=== PATIENT | female | born 1980 | race Caucasian/White ===

== ENCOUNTER → 2017-06-16 | Outpatient (CLI) | payer BC ==
--- NOTE | 2017-06-19 07:23 | MM ---
Reason for exam: screening (asymptomatic). Baseline mammogram. History: Taking other hormone beginning at age 26. Physical Findings: Nurse did not find any significant physical abnormalities on exam. MG Screening Mammo w CAD Bilateral CC and MLO view(s) were taken. The breast tissue is heterogeneously dense. This may lower the sensitivity of mammography. Finding: There are indeterminate regional calcifications in the middle position of the left breast. There is a tiny chronic nodularity in the left breast. These results were verbally communicated with the patient and result sheet given to the patient on 06/16/17. ASSESSMENT: Incomplete: need additional imaging evaluation, BI-RAD 0 RECOMMENDATION: Special view mammogram of the left breast. [facility] will attempt to contact patient to return for supplemental views.
--- NOTE | 2017-06-19 07:24 | MM ---
Reason for exam: additional evaluation requested from abnormal screening. History: Taking other hormone beginning at age 26. Physical Findings: Breast exam preformed at baseline screening. MG Work Up Mamm w CAD LT LM, CC with magnification, and LM with magnification view(s) were taken of the left breast. The breast tissue is heterogeneously dense. This may lower the sensitivity of mammography. Finding: There are round, regional calcifications in the inner quadrant, middle position of the left breast, partially layer. These results were verbally communicated with the patient and result sheet given to the patient on 06/16/17. ASSESSMENT: Probably benign, BI-RAD 3 RECOMMENDATION: Follow-up diagnostic mammogram of the left breast in 6 months.
== END | disposition home or self-care (01) ==
LOC: RADMAMWWP 09:30
PROVIDERS: ATTEND Obstetrics & Gynecology
DX: Z12.31 Encounter for screening mammogram for malignant neoplasm of breast (principal); R92.8 Other abnormal and inconclusive findings on diagnostic imaging of breast
CPT/HCPCS: G0202; G0206

== ENCOUNTER → 2017-08-03 | Outpatient (CLI) | payer BC ==
--- NOTE | 2017-08-03 15:09 | XR ---
EXAMINATION TYPE: XR foot complete LT DATE OF EXAM: 08/03/2017 COMPARISON: NONE HISTORY: Lateral foot pain TECHNIQUE: Three views are submitted. FINDINGS: The osseous structures are intact and mild hypertrophic change and arthropathy first MTP joint.. The re is no acute fracture or dislocation. Small plantar calcaneal spur. IMPRESSION: 1. No acute fracture or dislocation. If symptoms persist, follow-up exam in 7 to 10 days could be ob tained.
== END | disposition home or self-care (01) ==
LOC: RADXRMAIN 14:40
PROVIDERS: ATTEND Internal Medicine Geriatric Medicine
DX: M79.672 Pain in left foot (principal)

== ENCOUNTER 2017-09-17 08:03 | Emergency (ER) | payer BC ==
[2017-09-17] MEDS ORDERED: ONDANSETRON 4 MG/2 ML VIAL IVP STA ×2 (08:22→09:06)
[2017-09-17] MEDS ORDERED: HYDROmorphone 1 MG/ML 1 ML SYRINGE IVP STA (08:22)
[2017-09-17] MEDS ORDERED: SODIUM CHLORIDE 0.9% 1,000 ML IV STA (08:22)
--- NOTE | 2017-09-17 08:23 | ED ---
General Adult HPI - General Chief complaint: Abdominal Pain Stated complaint: poss kidney stone Time Seen by Provider: 09/17/17 08:16 Source: patient, RN notes reviewed Mode of arrival: ambulatory Limitations: no limitations - History of Present Illness Initial comments: 36-year-old female with significant past medical history for kidney stones, who presents emergency room today with a chief complaint of right-sided flank pain that began proxy 4 hours ago. She does admit to nausea and vomiting. Admits pain radiating around to the right lower back to the front. Patient does admit that it feels similar to kidney stone that she's had in the past. She denies any other complaints or associated symptoms. Patient denies any recent fever, chills, shortness of breath, chest pain, back pain, abdominal pain, nausea or vomiting, numbness or tingling, dysuria or hematuria, constipation or diarrhea, headaches or visual changes, or any other complaints. - Related Data Home Medications Medication Instructions Recorded Confirmed Atomoxetine HCl [Strattera] 40 mg PO DAILY 09/17/17 09/17/17 DULoxetine HCL [Cymbalta] 30 mg PO DAILY 09/17/17 09/17/17 Topiramate [Topamax] 50 mg PO BID 09/17/17 09/17/17 Previous Rx's Medication Instructions Recorded Hydrocodone/Acetaminophen [Trezevant 1 each PO Q6HR PRN #20 tab 09/17/17 5-325] Ibuprofen [Motrin] 600 mg PO Q6HR PRN #40 day 09/17/17 Ondansetron Odt [Zofran ODT] 4 mg PO Q8HR PRN #20 tab 09/17/17 Tamsulosin [Flomax] 0.4 mg PO DAILY #10 cap 09/17/17 Allergies Allergy/AdvReac Type Severity Reaction Status Date / Time amoxicillin Allergy Swelling Verified 09/17/17 08:42 Review of Systems ROS Statement: Those systems with pertinent positive or pertinent negative responses have been documented in the HPI. ROS Other: All systems not noted in ROS Statement are negative. 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 Eye: Pupils are equal, round and reactive to light, extra-ocular movements are intact. No nystagmus. There is normal conjunctiva bilaterally. No signs of icterus. Ears, nose, mouth and throat: There are moist mucous membranes and no oral lesions. Neck: The neck is supple, there is no tenderness or JVD. Cardiovascular: There is a regular rate and rhythm. No murmur, rub or gallop is appreciated. Respiratory: Lungs are clear to auscultation, respirations are non-labored, breath sounds are equal. No wheezes, stridor, rales, or rhonchi. Gastrointestinal: Soft, non-distended, non-tender abdomen without masses or organomegaly noted. There is no rebound or guarding present. No CVA tenderness. Bowel sounds are unremarkable. Musculoskeletal: Normal ROM, no tenderness. Strength 5/5. Sensation intact. Pulses equal bilaterally 2+. Neurological: A&O x 3. CN II-XII intact, There are no obvious motor or sensory deficits. Coordination appears grossly intact. Speech is normal. Skin: Skin is warm and dry and no rashes or lesions are noted. Psychiatric: Cooperative, appropriate mood & affect, normal judgment. Limitations: no limitations Course Vital Signs 09/17/17 08:04 Temperature 96.8 F L Pulse Rate 69 Respiratory 18 Rate Blood Pressure 142/90 O2 Sat by Pulse 97 Oximetry Medical Decision Making - Medical Decision Making Patient reexamined at this time shows no signs of distress. She is resting comfortably at the stretcher. Patient's labs have been reviewed and show some mild hematuria. No sign of infection. Patient's lab work unremarkable. Patient does admit that the symptoms are consistent with kidney stones that she' s had in the past. Options of CT were discussed. Risk and benefits were discussed. At this time she is comfortable without CAT scan. She'll be treated for kidney stone placed on Flomax, nausea medication pain medication go home with. Advised return to emergency room if any symptoms increase worsen or for any other concerns. - Lab Data Result diagrams: 09/17/17 08:22 09/17/17 08:22 Lab Results 09/17/17 09/17/1709/17/17 Range/Units 08:22 08:22 08:22 WBC 6.1 (3.8-10.6) k/uL RBC 4.59 (3.80-5.40) m/uL Hgb 14.3 (11.4-16.0) gm/dL Hct 44.7 (34.0-46.0) % MCV 97.2 (80.0-100.0) fL MCH 31.1 (25.0-35.0) pg MCHC 32.0 (31.0-37.0) g/dL RDW 12.9 (11.5-15.5) % Plt Count 247 (150-450) k/uL Neutrophils % 58 % Lymphocytes % 28 % Monocytes % 5 % Eosinophils % 6 % Basophils % 1 % Neutrophils # 3.5 (1.3-7.7) k/uL Lymphocytes # 1.7 (1.0-4.8) k/uL Monocytes # 0.3 (0-1.0) k/uL Eosinophils # 0.4 (0-0.7) k/uL Basophils # 0.1 (0-0.2) k/uL Sodium 143 (137-145) mmol/L Potassium 3.9 (3.5-5.1) mmol/L Chloride 110 H (98-107) mmol/L Carbon Dioxide 23 (22-30) mmol/L Anion Gap 10 mmol/L BUN 15 (7-17) mg/dL Creatinine 0.89 (0.52-1.04) mg/dL Est GFR (MDRD) Af Amer >60 (>60 ml/min/1.73 sqM) Est GFR (MDRD) Non-Af >60 (>60 ml/min/1.73 sqM) Glucose 119 H (74-99) mg/dL Calcium 9.4 (8.4-10.2) mg/dL Total Bilirubin 0.5 (0.2-1.3) mg/dL AST 21 (14-36) U/L ALT 25 (9-52) U/L Alkaline Phosphatase 49 (38-126) U/L Total Protein 7.4 (6.3-8.2) g/dL Albumin 4.5 (3.5-5.0) g/dL Amylase 35 (30-110) U/L Lipase 54 (23-300) U/L Urine Color Urine Appearance (Clear) Urine pH (5.0-8.0) Ur Specific [place] (1.001-1.035) Urine Protein (Negative) Urine Glucose (UA) (Negative) Urine Ketones (Negative) Urine Blood (Negative) Urine Nitrite (Negative) Urine Bilirubin (Negative) Urine Urobilinogen (<2.0) mg/dL Ur Leukocyte Esterase (Negative) Urine RBC (0-5) /hpf Urine WBC (0-5) /hpf Ur Squamous Epith Cells (0-4) /hpf Urine Bacteria (None) /hpf Urine Mucus (None) /hpf Urine HCG, Qual Not Detected (Not Detectd) 09/17/17 Range/Units 08:22 WBC (3.8-10.6) k/uL RBC (3.80-5.40) m/uL Hgb (11.4-16.0) gm/dL Hct (34.0-46.0) % MCV (80.0-100.0) fL MCH (25.0-35.0) pg MCHC (31.0-37.0) g/dL RDW (11.5-15.5) % Plt Count (150-450) k/uL Neutrophils % % Lymphocytes % % Monocytes % % Eosinophils % % Basophils % % Neutrophils # (1.3-7.7) k/uL Lymphocytes # (1.0-4.8) k/uL Monocytes # (0-1.0) k/uL Eosinophils # (0-0.7) k/uL Basophils # (0-0.2) k/uL Sodium (137-145) mmol/L Potassium (3.5-5.1) mmol/L Chloride (98-107) mmol/L Carbon Dioxide (22-30) mmol/L Anion Gap mmol/L BUN (7-17) mg/dL Creatinine (0.52-1.04) mg/dL Est GFR (MDRD) Af Amer (>60 ml/min/1.73 sqM) Est GFR (MDRD) Non-Af (>60 ml/min/1.73 sqM) Glucose (74-99) mg/dL Calcium (8.4-10.2) mg/dL Total Bilirubin (0.2-1.3) mg/dL AST (14-36) U/L ALT (9-52) U/L Alkaline Phosphatase (38-126) U/L Total Protein (6.3-8.2) g/dL Albumin (3.5-5.0) g/dL Amylase (30-110) U/L Lipase (23-300) U/L Urine Color Yellow Urine Appearance Cloudy H (Clear) Urine pH 5.0 (5.0-8.0) Ur Specific [place] 1.023 (1.001-1.035) Urine Protein Trace H (Negative) Urine Glucose (UA) Negative (Negative) Urine Ketones Negative (Negative) Urine Blood Moderate H (Negative) Urine Nitrite Negative (Negative) Urine Bilirubin Negative (Negative) Urine Urobilinogen <2.0 (<2.0) mg/dL Ur Leukocyte Esterase Moderate H (Negative) Urine RBC 10 H (0-5) /hpf Urine WBC 3 (0-5) /hpf Ur Squamous Epith Cells 25 H (0-4) /hpf Urine Bacteria Rare H (None) /hpf Urine Mucus Rare H (None) /hpf Urine HCG, Qual (Not Detectd) Disposition Clinical Impression: Kidney stone Disposition: HOME SELF-CARE Condition: Good Instructions: Kidney Stones (ED) Additional Instructions: Please use medication as discussed. Please follow-up with family doctor in the next 2 days of symptoms have not improved. Please return to emergency room if the symptoms increase or worsen or for any other concerns. Prescriptions: Hydrocodone/Acetaminophen [Trezevant 5-325] 1 each PO Q6HR PRN #20 tab PRN Reason: Pain Ibuprofen [Motrin] 600 mg PO Q6HR PRN #40 day PRN Reason: Pain Ondansetron Odt [Zofran ODT] 4 mg PO Q8HR PRN #20 tab PRN Reason: Nausea Tamsulosin [Flomax] 0.4 mg PO DAILY #10 cap Referrals: Dewey Miller MD [Primary Care Provider] - 1-2 days Time of Disposition: 09:54
[2017-09-17 08:31] LABS: Basophils # (A) 0.1 k/uL (0-0.2); Basophils % (A) 1 %; CH 31.5; CHCM 32.6; Eosinophils # (A) 0.4 k/uL (0-0.7); Eosinophils % (A) 6 %; HCT 44.7 % (34.0-46.0); HDW 2.21; HGB 14.3 gm/dL (11.4-16.0); Luc # (Auto) 0.12; Luc % (Auto) 2; Lymphocytes # (A) 1.7 k/uL (1.0-4.8); Lymphocytes % (A) 28 %; MCH 31.1 pg (25.0-35.0); MCV 97.2 fL (80.0-100.0); Monocytes # (A) 0.3 k/uL (0-1.0); Monocytes % (A) 5 %; Neutrophils # (A) 3.5 k/uL (1.3-7.7); Neutrophils % (A) 58 %; RBC 4.59 m/uL (3.80-5.40); RDW 12.9 % (11.5-15.5); WBC 6.1 k/uL (3.8-10.6); WBC (Perox) 6.15
[2017-09-17 08:36] LABS: Appearance,Urine Cloudy (Clear); Bacteria,Urine Rare /hpf; Bilirubin,Urine Negative (Negative); Glucose,Urine (UA) Negative (Negative); Ketones,Urine Negative (Negative); Leukocyte Esterase,Urine Moderate (Negative); Mucus,Urine Rare /hpf; Nitrite,Urine Negative (Negative); Particle Count 15480; Protein,Urine Trace (Negative); RBC,Urine 10 /hpf (0-5); Specific Gravity,Urine 1.023 (1.001-1.035); Squamous Epithelial Cell,Urine 25 /hpf (0-4); UA Billing (MACRO vs. MICRO) MICRO; Urobilinogen,Urine <2.0 mg/dL (<2.0); WBC,Urine 3 /hpf (0-5)
[2017-09-17 08:43] LABS: ALT 25 U/L (9-52); AST 21 U/L (14-36); Alkaline Phosphatase 49 U/L (38-126); Amylase 35 U/L (30-110); Anion Gap 10 mmol/L; Blood Urea Nitrogen 15 mg/dL (7-17); Calcium 9.4 mg/dL (8.4-10.2); Carbon Dioxide 23 mmol/L (22-30); Chloride 110 mmol/L (98-107); Glucose 119 mg/dL (74-99); Non-African American GFR(MDRD) >60 (>60 ml/min/1.73 sqM); Potassium 3.9 mmol/L (3.5-5.1); Sodium 143 mmol/L (137-145); Total Bilirubin 0.5 mg/dL (0.2-1.3); Total Protein 7.4 g/dL (6.3-8.2)
--- NOTE | 2017-09-17 08:51 | XR ---
EXAMINATION TYPE: XR KUB , 2 VIEWS DATE OF EXAM ORDERED: 09/17/2017 HISTORY: abdominal pain. COMPARISON: None. FINDINGS: The abdominal gas pattern is normal. There is no evidence of obstruction or free air. No u nusual calcifications are seen. There is an IUCD projecting over the pelvis. IMPRESSION: NO ACUTE INTRA-ABDOMINAL ABNORMALITY.
[2017-09-17] MEDS ORDERED: KETOROLAC 30 MG/ML 1 ML VIAL IVP STA (09:06)
[2017-09-17 10:22] VITALS: BP 112/72; PULSE 70; RESP 17; TEMP 97.1
== END 2017-09-17 10:22 | disposition home or self-care (01) ==
LOC: EC 08:03
DX: N20.0 Calculus of kidney (principal); F32.9 Major depressive disorder, single episode, unspecified; Z88.0 Allergy status to penicillin; Z79.899 Other long term (current) drug therapy
CPT/HCPCS: 99284; 96374; 96375 ×2; 96376; 96361; 36415; 80053; 82150; 83690; 85025; 81001; 81025; 74000; J2405; J1885; J1170

== ENCOUNTER → 2017-11-20 | Outpatient (CLI) | payer BC ==
--- NOTE | 2017-11-20 12:23 | XR ---
EXAMINATION TYPE: XR sacrum coccyx DATE OF EXAM: 11/20/2017 CLINICAL HISTORY: pain TECHNIQUE: Three views of the sacrum and coccyx are submitted. COMPARISON: None Sacral alae appear symmetric. Sacroiliac joints are within normal limits. Slight bony offset suggest ed at the sacrococcygeal junction which may be spurious in nature however subtle fracture is difficul t to exclude. Consider bone scan or CT for further evaluation. IMPRESSION: 1. Sacrococcygeal fracture difficult to exclude. See above.
== END | disposition home or self-care (01) ==
LOC: RADXRMAIN 11:43
PROVIDERS: ATTEND Internal Medicine Geriatric Medicine
DX: M54.5 Low back pain (principal)
CPT/HCPCS: 72220

== ENCOUNTER → 2017-12-18 | Outpatient (CLI) | payer BC ==
--- NOTE | 2017-12-18 12:09 | MM ---
Reason for exam: follow-up at short interval from prior study. Last mammogram was performed 6 months ago. History: Taking other hormone beginning at age 26. Physical Findings: Nurse did not find any significant physical abnormalities on exam. MG 3D Diag Mammo W/Cad LT CC and MLO view(s) were taken of the left breast. Prior study comparison: June 16, 2017, left breast MG work up mamm w CAD LT. June 16, 2017, bilateral MG screening mammo w CAD. The breast tissue is heterogeneously dense. This may lower the sensitivity of mammography. 9 o'clock grouped and regional calcifications are redemonstrated. Most of these layer compatible with benign milk of calcium. Others are round appearing. No significant interval change is seen. 1 year follow up recommended. These results were verbally communicated with the patient and result sheet given to the patient on 12/18/17. ASSESSMENT: Probably benign, BI-RAD 3 RECOMMENDATION: Follow-up diagnostic mammogram of the left breast in 1 year.
== END | disposition home or self-care (01) ==
LOC: RADMAMWWP 10:47
PROVIDERS: ATTEND Obstetrics & Gynecology
DX: R92.8 Other abnormal and inconclusive findings on diagnostic imaging of breast (principal)
CPT/HCPCS: 77065; G0279

== ENCOUNTER → 2019-01-15 | Outpatient (CLI) | payer BC ==
--- NOTE | 2019-01-15 10:07 | MM ---
Reason for exam: additional evaluation requested from prior study. Last mammogram was performed 1 year and 1 month ago. History: Taking other hormone beginning at age 26. Physical Findings: Nurse did not find any significant physical abnormalities on exam. MG Diagnostic Mammo w CAD MARCOS Bilateral CC and MLO view(s) were taken. Prior study comparison: December 18, 2017, left breast MG 3d diag mammo w/cad LT. June 16, 2017, left breast MG work up mamm w CAD LT. The breast tissue is heterogeneously dense. This may lower the sensitivity of mammography. Stable benign calcifications in the left breast. No significant new findings when compared with previous films. These results were verbally communicated with the patient and result sheet given to the patient on 01/15/19. ASSESSMENT: Benign, BI-RAD 2 RECOMMENDATION: Routine screening mammogram of both breasts in 1 year.
== END ==
LOC: RADMAMWWP 08:24
PROVIDERS: ATTEND Obstetrics & Gynecology
DX: R92.8 Other abnormal and inconclusive findings on diagnostic imaging of breast (principal)
CPT/HCPCS: 77066

== ENCOUNTER → 2020-06-05 | Outpatient (CLI) | payer BC ==
--- NOTE | 2020-06-08 10:39 | MM ---
Reason for exam: screening (asymptomatic). Last mammogram was performed 1 year and 5 months ago. History: Taking hormonal contraceptives for 12 years. Taking other hormone beginning at age 26. Physical Findings: A clinical breast exam by your physician is recommended on an annual basis and results should be correlated with mammographic findings. MG 3D Screening Mammo W/Cad Bilateral CC and MLO view(s) were taken. Prior study comparison: January 15, 2019, bilateral MG diagnostic mammo w CAD [facility]. December 18, 2017, left breast MG 3d diag mammo w/cad LT. The breast tissue is heterogeneously dense. This may lower the sensitivity of mammography. There is no discrete abnormality. No significant changes when compared with prior studies. ASSESSMENT: Negative, BI-RAD 1 RECOMMENDATION: Routine screening mammogram of both breasts in 1 year.
== END | disposition home or self-care (01) ==
LOC: RADMAMWWP 11:00
PROVIDERS: ATTEND Obstetrics & Gynecology
DX: Z12.31 Encounter for screening mammogram for malignant neoplasm of breast (principal)
CPT/HCPCS: 77063; 77067

== ENCOUNTER → 2021-07-23 | Outpatient (CLI) | payer OTHER ==
--- NOTE | 2021-07-26 09:22 | MM ---
Reason for exam: screening (asymptomatic). Last mammogram was performed 1 year and 2 months ago. History: Took hormonal contraceptives for 12 years. Taking other hormone beginning at age 26. Physical Findings: A clinical breast exam by your physician is recommended on an annual basis and results should be correlated with mammographic findings. MG 3D Screening Mammo W/Cad Bilateral CC and MLO view(s) were taken. Prior study comparison: June 05, 2020, bilateral MG 3d screening mammo w/cad. January 15, 2019, bilateral MG diagnostic mammo w CAD M[facility]OS. The breast tissue is heterogeneously dense. This may lower the sensitivity of mammography. There are new indeterminate calcifications bilaterally. This finding is changed when compared with previous exams. ASSESSMENT: Incomplete: need additional imaging evaluation, BI-RAD 0 RECOMMENDATION: Special view mammogram of both breasts. [facility] will attempt to contact patient to return for supplemental views.
== END | disposition home or self-care (01) ==
LOC: RADMAMWWP 09:32
PROVIDERS: ATTEND Obstetrics & Gynecology
DX: Z12.31 Encounter for screening mammogram for malignant neoplasm of breast (principal)
CPT/HCPCS: 77063; 77067

== ENCOUNTER → 2021-07-30 | Outpatient (CLI) | payer OTHER ==
--- NOTE | 2021-07-30 11:14 | MM ---
Reason for exam: additional evaluation requested from abnormal screening. Last mammogram was performed less than 1 month ago. History: Taking hormonal contraceptives for 12 years. Taking other hormone beginning at age 26. Physical Findings: Nurse did not find any significant physical abnormalities on exam. MG 3D Work Up W/Cad MARCOS Bilateral CC and MLO view(s) were taken. Prior study comparison: July 23, 2021, bilateral MG 3d screening mammo w/cad. June 05, 2020, bilateral MG 3d screening mammo w/cad. The breast tissue is heterogeneously dense. This may lower the sensitivity of mammography. Layering calcifications bilaterally indicating milk of calcium calcifications. These results were verbally communicated with the patient and result sheet given to the patient on 07/30/21. ASSESSMENT: Benign, BI-RAD 2 RECOMMENDATION: Return to routine screening mammogram schedule for both breasts.
== END | disposition home or self-care (01) ==
LOC: RADMAMWWP 07:33
PROVIDERS: ATTEND Obstetrics & Gynecology
DX: R92.8 Other abnormal and inconclusive findings on diagnostic imaging of breast (principal)
CPT/HCPCS: 77062; 77066

== ENCOUNTER → 2022-09-30 | Outpatient (CLI) | payer OTHER ==
--- NOTE | 2022-10-03 17:38 | MM ---
Reason for Exam: Screening (asymptomatic). Last mammogram was performed 1 year(s) and 2 month(s) ago. Patient History: Menarche at age 12. First Full-Term at age 16. Patient has history of breast feeding. Currently using Hormonal Contraceptives, for 12 years. Last menstrual period: 04/18/2007 Risk Values: [place] 5 year model risk: 0.5%. NCI Lifetime model risk: 7.2%. Prior Study Comparison: 06/05/2020 Bilateral Screening Mammogram, [facility]. 07/23/2021 Bilateral Screening Mammogram, [facility]. 07/30/2021 Bilateral Diagnostic Mammogram, [facility]. Tissue Density: The breast tissue is heterogeneously dense. This may lower the sensitivity of mammography. Findings: Analyzed By CAD. Pattern appears symmetrical and stable. No significant interval change is evident. There are some segmental scattered punctate calcifications within the left breast. These were present previously. There is grouping of punctate calcifications within the anterior right breast. These appear increasing. Additional workup is recommended. Overall Assessment: Incomplete: need additional imaging evaluation, BI-RAD 0 Management: Diagnostic Mammogram of the right breast. A negative mammogram report should not preclude additional follow up of suspicious palpable abnormalities. Patient should continue monthly self breast exam. A clinical breast exam by your physician is recommended on an annual basis and results should be correlated with mammographic findings. Electronically signed and approved by: Keegan Leonardo D.O. Radiologis
== END | disposition home or self-care (01) ==
LOC: RADMAMWWP 13:35
PROVIDERS: ATTEND Obstetrics & Gynecology
DX: Z12.31 Encounter for screening mammogram for malignant neoplasm of breast (principal)
CPT/HCPCS: 77063; 77067

== ENCOUNTER → 2022-10-14 | Outpatient (CLI) | payer OTHER ==
--- NOTE | 2022-10-14 08:59 | MM ---
Reason for Exam: Additional evaluation requested from abnormal screening. Last screening mammogram was performed less than 1 month ago. Patient History: Menarche at age 12. First Full-Term at age 16. Premenopausal. Patient has history of breast feeding. Currently using Hormonal Contraceptives, for 12 years. Risk Values: [place] 5 year model risk: 0.5%. NCI Lifetime model risk: 7.2%. Prior Study Comparison: 06/16/2017 Bilateral Screening Mammogram, [facility]. 06/16/2017 Left Diagnostic Mammogram, [facility]. 12/18/2017 Left Diagnostic Mammogram, [facility]. 01/15/2019 Bilateral Diagnostic Mammogram, [facility]. 06/05/2020 Bilateral Screening Mammogram, [facility]. 07/23/2021 Bilateral Screening Mammogram, [facility]. 07/30/2021 Bilateral Diagnostic Mammogram, [facility]. Tissue Density: Right: The breast tissue is heterogeneously dense. This may lower the sensitivity of mammography. Findings: Analyzed By CAD. Group calcifications anteriorly right breast do show some layering on true lateral view and are thought unchanged from 2020 mammogram. Overall Assessment: Benign, BI-RAD 2 Management: Screening Mammogram of both breasts in 1 year. Return to routine follow-up. Results were given to the patient verbally at the time of exam. Electronically signed and approved by: Arturo Lutz M.D.
== END | disposition home or self-care (01) ==
LOC: RADMAMWWP 08:17
PROVIDERS: ATTEND Obstetrics & Gynecology
DX: R92.8 Other abnormal and inconclusive findings on diagnostic imaging of breast (principal)
CPT/HCPCS: 77061; 77065

== ENCOUNTER → 2023-10-20 | Outpatient (CLI) | payer OTHER ==
--- NOTE | 2023-10-23 14:45 | MM ---
Reason for Exam: Screening (asymptomatic). Last mammogram was performed 1 year(s) and 1 month(s) ago. Patient History: Menarche at age 12. First Full-Term at age 16. Premenopausal. Patient has history of breast feeding. Currently using Hormonal Contraceptives, for 12 years. Risk Values: [place] 5 year model risk: 0.5%. NCI Lifetime model risk: 7.1%. Prior Study Comparison: 12/18/2017 Left Diagnostic Mammogram, [facility]. 01/15/2019 Bilateral Diagnostic Mammogram, [facility]. 06/05/2020 Bilateral Screening Mammogram, [facility]. 07/23/2021 Bilateral Screening Mammogram, [facility]. 07/30/2021 Bilateral Diagnostic Mammogram, [facility]. 09/30/2022 Bilateral MG 3D screening mammo w/cad, [facility]. 10/14/2022 Right MG 3D work up w/cad RT, [facility]. Tissue Density: The breast tissue is heterogeneously dense. This may lower the sensitivity of mammography. Findings: Analyzed By CAD. Pattern appears symmetrical and stable. There are regional calcifications present bilaterally. No significant interval changes are evident. No suspicious groups of microcalcifications, spiculated or lobular masses, architectural distortion or other secondary signs of malignancy are mammographically apparent. Overall Assessment: Benign, BI-RAD 2 Management: Screening Mammogram of both breasts in 1 year. A negative mammogram report should not preclude additional follow up of suspicious palpable abnormalities. Patient should continue monthly self breast exam. A clinical breast exam by your physician is recommended on an annual basis and results should be correlated with mammographic findings. Electronically signed and approved by: Keegan Leonardo D.O. Radiologis
== END | disposition home or self-care (01) ==
LOC: RADMAMWWP 08:02
PROVIDERS: ATTEND Obstetrics & Gynecology
DX: Z12.31 Encounter for screening mammogram for malignant neoplasm of breast (principal)
CPT/HCPCS: 77063; 77067

== ENCOUNTER → 2024-10-25 | Outpatient (CLI) | payer OTHER ==
--- NOTE | 2024-10-29 13:33 | MM ---
Reason for Exam: Screening (asymptomatic). Last screening mammogram was performed 12 month(s) ago. Patient History: Menarche at age 12. First Full-Term at age 16. Premenopausal. Patient has history of breast feeding. Currently using Hormonal Contraceptives, for 12 years. Risk Values: [place] 5 year model risk: 0.6%. NCI Lifetime model risk: 7.1%. Prior Study Comparison: 09/30/2022 Bilateral MG 3D screening mammo w/cad, [facility]. 10/14/2022 Right MG 3D work up w/cad RT, [facility]. 10/20/2023 Bilateral MG 3D screening mammo w/cad, [facility]. Tissue Density: The breasts are heterogeneously dense, which may obscure small masses. Findings: Analyzed By CAD. Regional calcifications medial left breast and calcifications along the retroareolar plane right breast anterior to middle depth remain unchanged. Areas of asymmetric density are unchanged. There is no suspicious group of microcalcifications or new suspicious mass in either breast. Overall Assessment: Benign, BI-RAD 2 Management: Screening Mammogram of both breasts in 1 year. . Patient should continue monthly self-breast exams. A clinical breast exam by your physician is recommended on an annual basis. This exam should not preclude additional follow-up of suspicious palpable abnormalities. Note on [place] scores and lifetime risk: 1. A [place] score greater than 3% is considered moderate risk. If this is the case, consider specialist referral to assess eligibility for a risk reducing agent. 2. If overall lifetime risk for the development of breast cancer is 20% or higher, the patient may qualify for future screening with alternating mammogram and breast MRI. [facility], , 10/29/2024 1:30 PM. Electronically signed and approved by: Shailesh Ansari M.D. Radiologist
== END | disposition home or self-care (01) ==
LOC: RADMAMWWP 08:04
PROVIDERS: ATTEND Obstetrics & Gynecology
DX: Z12.31 Encounter for screening mammogram for malignant neoplasm of breast (principal); R92.333 Mammographic heterogeneous density, bilateral breasts
CPT/HCPCS: 77063; 77067

== ENCOUNTER 2025-04-17 20:00 | Inpatient (IN) | payer OTHER ==
--- NOTE | 2025-04-17 20:30 | ED ---
Chest Pain HPI - General Chief Complaint: Chest Pain Stated Complaint: Chest Pain/L arm pain Time Seen by Provider: 04/17/25 20:05 Source: patient Mode of arrival: ambulatory Limitations: no limitations - History of Present Illness Initial Comments: 44-year-old female with past medical history of high cholesterol who presents emergency department reporting chest pain. States that the chest pain woke her up from sleep around 3 PM. The pain ended up going away only to return later. She describes it as a pressure sensation in the left side of her chest which radiates down her right arm. Patient states she does get some associated nausea with diaphoresis. Patient denies history of cardiac disease. Pain is not present at this time. No fevers, chills or cough. She denies any numbness in her arm or leg. Does have a history of factor V and MTHFR. Denies history of blood clots. Denies any calf pain or swelling. No other alleviating, precipitating or modifying factors - Related Data Home Medications Medication Instructions Recorded Confirmed Atomoxetine HCl [Strattera] 40 mg PO DAILY 09/17/17 09/17/17 DULoxetine HCL [Cymbalta] 30 mg PO DAILY 09/17/17 09/17/17 Topiramate [Topamax] 50 mg PO BID 09/17/17 09/17/17 Previous Rx's Medication Instructions Recorded Hydrocodone/Acetaminophen [[place] 1 each PO Q6HR PRN #20 tab 09/17/17 5-325] Ibuprofen [Motrin] 600 mg PO Q6HR PRN #40 day 09/17/17 Ondansetron Odt [Zofran ODT] 4 mg PO Q8HR PRN #20 tab 09/17/17 Tamsulosin [Flomax] 0.4 mg PO DAILY #10 cap 09/17/17 Allergies Allergy/AdvReac Type Severity Reaction Status Date / Time amoxicillin Allergy Swelling Verified 04/17/25 20:09 Review of Systems ROS Statement: Those systems with pertinent positive or pertinent negative responses have been documented in the HPI. ROS Other: All systems not noted in ROS Statement are negative. Past Medical History Past Medical History: Hyperlipidemia Additional Past Medical History / Comment(s): Factor 5, MTFHR, History of Any Multi-Drug Resistant Organisms: None Reported Past Surgical History: Adenoidectomy, Tonsillectomy Additional Past Surgical History / Comment(s): D/C Past Psychological History: Depression Smoking Status: Never smoker Past Alcohol Use History: Occasional Past Drug Use History: None Reported General Exam Limitations: no limitations General appearance: alert, in no apparent distress Head exam: Present: atraumatic, normocephalic, normal inspection Eye exam: Present: normal appearance, PERRL, EOMI. Absent: scleral icterus, conjunctival injection, periorbital swelling ENT exam: Present: normal exam, mucous membranes moist Neck exam: Present: normal inspection. Absent: tenderness, meningismus, lymphadenopathy Respiratory exam: Present: normal lung sounds bilaterally. Absent: respiratory distress, wheezes, rales, rhonchi, stridor Cardiovascular Exam: Present: regular rate, normal rhythm, normal heart sounds. Absent: systolic murmur, diastolic murmur, rubs, gallop, clicks GI/Abdominal exam: Present: soft, normal bowel sounds. Absent: distended, tenderness, guarding, rebound, rigid Extremities exam: Present: normal inspection, full ROM, normal capillary refill. Absent: tenderness, pedal edema, joint swelling, calf tenderness Back exam: Present: normal inspection Neurological exam: Present: alert, oriented X3, CN II-XII intact Psychiatric exam: Present: normal affect, normal mood Skin exam: Present: warm, dry, intact, normal color. Absent: rash Course Vital Signs 04/17/25 04/17/25 04/17/25 20:02 20:18 20:48 Temperature 98.2 F 98.0 F 98.1 F Pulse Rate 106 H 82 Respiratory 17 17 Rate Blood Pressure 160/111 142/99 138/91 O2 Sat by Pulse 100 100 Oximetry 04/17/25 04/17/25 04/17/25 21:08 22:30 22:54 Temperature Pulse Rate 74 68 69 Respiratory 16 18 Rate Blood Pressure 121/68 118/73 128/87 O2 Sat by Pulse 98 98 Oximetry Chest Pain MDM - MDM Was pt. sent in by a medical professional or institution (ISH Keenan, YARN TEXTURING MACHINE OPERATOR, urgent care, hospital, or custodial...) When possible be specific @ -[No] Did you speak to anyone other than the patient for history (EMS, parent, family, police, friend...)? What history was obtained from this source @ -[No] Did you review nursing and triage notes (agree or disagree)? Why? @ -[I reviewed and agree with nursing and triage notes] Were old charts reviewed (outside hosp., previous admission, EMS record, old EKG, old radiological studies, urgent care reports/EKG's, custodial records)? Report findings @ -[No old charts were reviewed] Differential Diagnosis (chest pain, altered mental status, abdominal pain women, abdominal pain men, vaginal bleeding, weakness, fever, dyspnea, syncope, headache, dizziness, GI bleed, back pain, seizure, CVA, palpatations, mental health, musculoskeletal)? @ -[not applicable] EKG interpreted by me (3pts min.). @ - First EKG done at 2033 demonstrates sinus rhythm with rate of 89. Parable 145. QRS 72. QTc of 413. ST depression in the inferior, anterior and lateral leads. No acute ST segment elevation Repeat EKG done at 2250 demonstrates sinus rhythm with a rate of 68. SC interval 148. QRS 77. QTc of 407. No acute ST segment elevations or depressions X-rays interpreted by me (1pt min.). @ -[None done] CT interpreted by me (1pt min.). @ -[None done] U/S interpreted by me (1pt. min.). @ -[None done] What testing was considered but not performed or refused? (CT, X-rays, U/S, labs)? Why? @ -[None] What meds were considered but not given or refused? Why? @ -[None] Did you discuss the management of the patient with other professionals (professionals i.e. , PA, YARN TEXTURING MACHINE OPERATOR, lab, RT, psych nurse, secondary social studies teacher, bakery products checker, teacher, police booking officer, heel caser)? Give summary @ -[No] Was smoking cessation discussed for >3mins.? @ -[No] Was critical care preformed (if so, how long)? @ -[No] Were there social determinants of health that impacted care today? How? (Homelessness, low income, unemployed, alcoholism, drug addiction, transportation, low edu. Level, literacy, decrease access to med. care, halfway, rehab)? @ -[No] Was there de-escalation of care discussed even if they declined (Discuss DNR or withdrawal of care, Hospice)? DNR status @ -[No] What co-morbidities impacted this encounter? (DM, HTN, Smoking, COPD, CAD, Cancer, CVA, ARF, Chemo, Hep., AIDS, mental health diagnosis, sleep apnea, morbid obesity)? @ -[None] Was patient admitted / discharged? Hospital course, mention meds given and route, prescriptions, significant lab abnormalities, going to OR and other pertinent info. @ -[hospital course] Undiagnosed new problem with uncertain prognosis? @ -[No] Drug Therapy requiring intensive monitoring for toxicity (Heparin, Nitro, Insulin, Cardizem)? @ -[No] Were any procedures done? @ -[No] Diagnosis/symptom? @ -[default] Acute, or Chronic, or Acute on Chronic? @ -[default] Uncomplicated (without systemic symptoms) or Complicated (systemic symptoms)? @ -[default] Side effects of treatment? @ -[No] Exacerbation, Progression, or Severe Exacerbation? @ -[No] Poses a threat to life or bodily function? How? (Chest pain, [place], [place], pneumonia, PE, COPD, DKA, ARF, appy, cholecystitis, CVA, Diverticulitis, Homicidal, Suicidal, threat to staff... and all critical care pts) @ -[No] Disposition Clinical Impression: Chest pain, Acute non-ST elevation myocardial infarction (NSTEMI) Disposition: ADMITTED IP TO THIS [facility] Condition: Serious Is patient prescribed a controlled substance at d/c from ED?: No Referrals: Dewey Miller MD [Primary Care Provider] - 1-2 days Time of Disposition: 00:01 Decision to Admit Reason: Admit from EC Decision Date: 04/18/25 Decision Time: 00:02
--- NOTE | 2025-04-17 21:52 | XR ---
EXAMINATION TYPE: XR chest 2V DATE OF EXAM: 04/17/2025 9:18 PM COMPARISON: none CLINICAL INDICATION: Female, 44 years old with history of Chest Pain; [facility] TECHNIQUE: XR chest 2V Frontal and lateral views of the chest. FINDINGS: Lungs/Pleura: There is no evidence of pleural effusion, focal consolidation, or pneumothorax. Pulmonary vascularity: Unremarkable. Heart/mediastinum: Cardiomediastinal silhouette is unremarkable. Haziness the right heart border. Musculoskeletal: No acute osseous pathology. Other findings: None IMPRESSION: There is haziness the right heart border possibly airspace opacities versus rotation of exam. [facility], , 04/17/2025 9:50 PM
[2025-04-17 21:55] LABS: Basophils # (A) 0.03 10*3/uL (0.00-0.10); Basophils % (A) 0.3 %; Eosinophils # (A) 0.04 10*3/uL (0.04-0.35); Eosinophils % (A) 0.5 %; HCT 39.9 % (37.2-46.3); HGB 13.6 g/dL (12.0-15.0); Lymphocytes # (A) 1.16 10*3/uL (0.90-5.00); Lymphocytes % (A) 13.5 %; MCH 32.5 pg (27.0-32.0); MCHC 34.1 g/dL (32.0-37.0); MCV 95.5 fL (80.0-97.0); Monocytes # (A) 0.33 10*3/uL (0.20-1.00); Monocytes % (A) 3.8 %; Neutrophils # (A) 7.04 10*3/uL (1.80-7.70); Neutrophils % (A) 81.7 %; Platelet Count 228 10*3/uL (140-440); RBC 4.18 10*6/uL (4.10-5.20); RDW 11.8 % (11.5-14.5); WBC 8.62 10*3/uL (4.50-10.00)
[2025-04-17 22:10] LABS: Partial Thromboplastin Time 23.3 sec (22.0-30.0); Prothrombin Time 11.1 sec (10.0-12.5)
[2025-04-17 22:14] LABS: ALT 22 U/L (4-34); AST 29 U/L (14-36); African American GFR (CKD) >90 (>60 ml/min/1.73 sqM); Albumin 4.8 g/dL (3.5-5.0); Alkaline Phosphatase 49 U/L (38-126); Anion Gap 12 mmol/L; Blood Urea Nitrogen 16 mg/dL (7-17); Calcium 9.5 mg/dL (8.4-10.2); Carbon Dioxide 19 mmol/L (22-30); Chloride 106 mmol/L (98-107); Glucose 106 mg/dL (74-99); Lipase 65 U/L (23-300); Non-African American GFR(CKD) >90 (>60 ml/min/1.73 sqM); Potassium 4.2 mmol/L (3.5-5.1); Sodium 137 mmol/L (137-145); Total Bilirubin 0.5 mg/dL (0.2-1.3); Total Protein 7.1 g/dL (6.3-8.2)
[2025-04-17] MEDS: ACETAMINOPHEN TAB 500 MG TAB PO STA (23:02)
[2025-04-17] MEDS: NITROGLYCERIN SL TABS 0.4 MG TAB SUBLINGUAL STA (23:03)
[2025-04-17] MEDS: ASPIRIN 81 MG PO STA (23:04)
[2025-04-18] MEDS ORDERED: HEPARIN SODIUM 1,000 UN/ML (10ML VL) IV PRN (00:02)
[2025-04-18] MEDS ORDERED: NALOXONE 0.4 MG/ML 1 ML VIAL IV PRN (00:03)
--- NOTE | 2025-04-18 00:06 | CT ---
EXAM: CT Angiography Chest With Intravenous Contrast CLINICAL HISTORY: ITS.REASON CT Reason: chest pain, hx mthfr/factor 5 TECHNIQUE: Axial computed tomographic angiography images of the chest with intravenous contrast. CTDI is 15.6 mGy and DLP is 270.4 mGy-cm. This CT exam was performed using one or more of the following dose reduction techniques: automated exposure control, adjustment of the mA and/or kV according to patient size, and/or use of iterative reconstruction technique. MIP reconstructed images were created and reviewed. COMPARISON: No relevant prior studies available. FINDINGS: Pulmonary arteries: Unremarkable. No pulmonary embolism. Aorta: No acute findings. No thoracic aortic aneurysm. Lungs: Unremarkable. No mass. No consolidation. Pleural space: Unremarkable. No significant effusion. No pneumothorax. Heart: Unremarkable. No cardiomegaly. No significant pericardial effusion. No evidence of RV dysfunction. Bones/joints: Pectus excavatum deformity. No acute fracture. No dislocation. Soft tissues: Unremarkable. Lymph nodes: Unremarkable. No enlarged lymph nodes. IMPRESSION: No pulmonary embolism.
[2025-04-18] MEDS: HEPARIN SODIUM 1,000 UN/ML (10ML VL) IV ONE (00:24)
[2025-04-18] MEDS: HEPARIN SOD,PORK IN 0.45% NACL 25,000 UNIT in 0.45% NACL 1 250ML.BAG IV SCH (00:25)
[2025-04-18] MEDS: SODIUM CHLORIDE 0.9% 1,000 ML IV SCH (00:27)
[2025-04-18] MEDS: ONDANSETRON 4 MG/2 ML VIAL IVP STA (03:12)
[2025-04-18] MEDS ORDERED: NITROGLYCERIN SL TABS 0.4 MG TAB SUBLINGUAL PRN (08:16)
[2025-04-18] MEDS ORDERED: ALPRAZolam 0.25 MG TAB PO PRN (08:16)
[2025-04-18] MEDS ORDERED: ALPRAZolam 0.5 MG TAB PO PRN (08:16)
--- NOTE | 2025-04-18 08:30 | P.CRDCN ---
History of Present Illness History of present illness: HISTORY OF PRESENT ILLNESS: This is a 44-year-old female with a past medical history significant for depression, factor V, MTHFR. Patient does not follow with a fish hatchery laborer. We have been asked to see the patient in consultation for non-STEMI. Patient examined at the bedside in the ER. Patient states yesterday she woke up at 3:00 in the morning with chest discomfort. She ended up going to work and tried to push through. She states around 5:00 she had another episode of chest pain that radiated into her left arm. She reports feeling dizzy and diaphoretic. She presented to the ER for further evaluation. Patient was found to have elevated troponins and was started on IV heparin. She reports mild discomfort this morning and is rating it 1/10. DIAGNOSTICS: - EKG reveals sinus mechanism with no signs of acute ischemia. - Chest xray haziness over the right heart border possible airspace opacities versus rotation of exam. - Laboratory data: WBC 8.62. Hemoglobin 13.6. Platelet count 228. Sodium 137. Potassium 4.2. BUN 16. Creatinine 0.68. Troponin 0.162. 2.670. - Current home cardiac medications include none. - No previous echocardiogram, stress test, or cardiac catheterization available in EMR for review REVIEW OF SYSTEMS: At the time of my exam: CONSTITUTIONAL: Denies fever or chills. HEENT: Denies blurred vision, vision changes, or eye pain. Denies hemoptysis CARDIOVASCULAR: Denies chest pain. Denies orthopnea. Denies PND. Denies palpitations RESPIRATORY: Denies shortness of breath. GASTROINTESTINAL: Denies abdominal pain. Denies nausea or vomiting. HEMATOLOGIC: Denies bleeding disorders. GENITOURINARY: Denies any blood in urine. SKIN: Denies pruitis. Denies rash. PHYSICAL EXAM: VITAL SIGNS: Reviewed. GENERAL: Well-developed in no acute distress. HEENT: Head is normocephalic. Pupils are equal, round. Sclerae anicteric. Mucous membranes of the mouth are moist. Neck supple. No JVD or thyromegaly LUNGS: Respirations even and unlabored. Lungs essentially clear to auscultation bilaterally. HEART: Regular rate and rhythm. S1 and S2 heard. ABDOMEN: Soft. Nondistended. Nontender. EXTREMITIES: Normal range of motion. No clubbing or cyanosis. Peripheral pulses intact. No lower extremity edema NEUROLOGIC: Awake and alert. Oriented x 3. ASSESSMENT: Non-STEMI History of depression History of factor V Leyden History of MTHFR PLAN: Obtain 2D echo to assess cardiac structure and function Continue IV heparin Add aspirin and atorvastatin Check hemoglobin A1c and lipid panel N.p.o. Patient to undergo cardiac catheterization today with Dr. Nielsen Further recommendations pending patient course Nurse practitioner note has been reviewed by physician. Signing provider agrees with the documented findings, assessment, and plan of care documented by HANSARD REPORTER as a scribe. Past Medical History Past Medical History: Hyperlipidemia Additional Past Medical History / Comment(s): Factor 5, MTFHR, History of Any Multi-Drug Resistant Organisms: None Reported Past Surgical History: Adenoidectomy, Tonsillectomy Additional Past Surgical History / Comment(s): D/C Past Psychological History: Depression Smoking Status: Never smoker Past Alcohol Use History: Occasional Past Drug Use History: None Reported Medications and Allergies Home Medications Medication Instructions Recorded Confirmed Type Dextroamphetamine/Amphetamine 15 mg PO DAILY 04/18/25 04/18/25 History [Adderall Xr 15 mg Capsule] Rosuvastatin [Crestor] 10 mg PO HS 04/18/25 04/18/25 History Terbinafine [LamISIL] 250 mg PO HS 04/18/25 04/18/25 History buPROPion XL [Wellbutrin XL] 300 mg PO DAILY 04/18/25 04/18/25 History Allergies Allergy/AdvReac Type Severity Reaction Status Date / Time amoxicillin Allergy Swelling/ra Verified 04/18/25 08:10 Physical Exam Vitals: Vital Signs Temp Pulse Resp BP Pulse Ox 04/18/25 06:28 98.2 F 80 18 129/89 99 04/18/25 05:00 64 121/85 97 04/18/25 04:00 62 17 124/89 98 04/18/25 03:10 98.1 F 73 18 122/90 99 04/18/25 01:00 73 126/89 04/18/25 00:00 74 16 125/82 04/17/25 22:54 69 18 128/87 98 04/17/25 22:30 68 118/73 04/17/25 21:08 74 16 121/68 98 04/17/25 20:48 98.1 F 82 17 138/91 100 04/17/25 20:18 98.0 F 142/99 04/17/25 20:02 98.2 F 106 H 17 160/111 100 Intake and Output 04/17/25 04/18/25 04/18/25 22:59 06:59 14:59 Other: Weight 63.957 kg Results 04/17/25 21:36 04/17/25 21:36 Cardiac Enzymes 04/17/25 04/17/25 04/18/25 Range/Units 21:36 21:36 03:30 AST 29 (14-36) U/L Troponin I 0.163 H* 2.670 H* (0.000-0.034) ng/mL Coagulation 04/17/25 04/18/25 Range/Units 21:36 06:35 PT 11.1 (10.0-12.5) sec APTT 23.3 54.8 H (22.0-30.0) sec CBC 04/17/25 Range/Units 21:36 WBC 8.62 (4.50-10.00) 10*3/uL RBC 4.18 (4.10-5.20) 10*6/uL Hgb 13.6 (12.0-15.0) g/dL Hct 39.9 (37.2-46.3) % Plt Count 228 (140-440) 10*3/uL Comprehensive Metabolic Panel 04/17/25 Range/Units 21:36 Sodium 137 (137-145) mmol/L Potassium 4.2 (3.5-5.1) mmol/L Chloride 106 (98-107) mmol/L Carbon Dioxide 19 L (22-30) mmol/L BUN 16 (7-17) mg/dL Creatinine 0.68 (0.52-1.04) mg/dL Glucose 106 H (74-99) mg/dL Calcium 9.5 (8.4-10.2) mg/dL AST 29 (14-36) U/L ALT 22 (4-34) U/L Alkaline Phosphatase 49 (38-126) U/L Total Protein 7.1 (6.3-8.2) g/dL Albumin 4.8 (3.5-5.0) g/dL Current Medications Generic Name Dose Route Start Last Admin Trade Name Freq PRN Reason Stop Dose Admin Heparin Sodium (Porcine) 0 unit 04/18/25 00:02 Heparin Sodium 1,000 Un/Ml (10ml Vl) IV PER PROTOCOL PRN Low PTT Protocol Heparin Sodium/Sodium Chloride 250 mls @ 7.675 mls/hr 04/18/25 00:15 04/18/25 00:25 25,000 unit/ Sodium Chloride IV 12 units/kg/hr .Q24H PETER 7.675 mls/hr Administration Protocol 12 UNITS/KG/HR Sodium Chloride 1,000 mls @ 75 mls/hr 04/18/25 00:15 04/18/25 00:27 Saline 0.9% IV 75 mls/hr .[id number] PETER Administration Naloxone HCl 0.2 mg 04/18/25 00:03 Naloxone 0.4 Mg/Ml 1 Ml Vial IV Q2M PRN Opioid Reversal Ondansetron HCl 4 mg 04/18/25 03:38 Ondansetron 4 Mg/2 Ml Vial IVP Q6HR PRN Nausea And Vomiting Intake and Output 04/17/25 04/18/25 04/18/25 22:59 06:59 14:59 Other: Weight 63.957 kg 04/17/25 21:36 04/17/25 21:36
[2025-04-18] MEDS: ASPIRIN 325 MG TAB PO STA (08:38)
[2025-04-18] MEDS: ATORVASTATIN 80 MG TAB PO STA (08:38)
[2025-04-18] MEDS: METOPROLOL TARTRATE 25 MG TAB PO SCH (08:39)
[2025-04-18] MEDS: IV FLUID CONTINUATION 1,000 ML IV ONE (10:45)
[2025-04-18] MEDS: fentaNYL (PF) 50 MCG/1 ML VIAL IVP ONE ×2 (11:13→11:17)
[2025-04-18] MEDS: HEPARIN SODIUM,PORCINE (1 ML) 2,500 UNIT in SODIUM CHLORIDE 0.9% 250 ML IRRIGATION PRN (11:13)
[2025-04-18] MEDS: HEPARIN SODIUM,PORCINE 10,000 UNIT in SODIUM CHLORIDE 0.9% 1,000 ML IRRIGATION PRN (11:13)
[2025-04-18] MEDS: LIDOCAINE 1% INJ 10MG/ML (20 ML MDV) SQ ONE (11:17)
[2025-04-18] MEDS: VERAPAMIL SYRINGE (5 MG/10 ML) INTRAARTER ONE (11:17)
[2025-04-18] MEDS: MIDAZOLAM 2 MG/2 ML VIAL IVP ONE (11:19)
[2025-04-18] MEDS: HEPARIN SODIUM 1,000 UN/ML (10ML VL) IVP ONE (11:20)
[2025-04-18] MEDS: IOPAMIDOL-370 100ML BTL INJ ONE (11:36)
--- NOTE | 2025-04-18 11:54 | P.CARDCATH ---
Date of Procedure: 04/18/25 Description of Procedure: Cardiac Catheterization: The patient is a 44-year-old female with a history of hyperlipidemia who presented with symptoms of chest discomfort, radiating to the left arm, in the emergency room her EKG showed no acute changes but she had troponin elevation. She was evaluated by Dr. Diamond. Recommendations were made regarding cardiac catheterization, the risks and the complications were discussed with the patient who is in full understanding and agreement. Procedure Description: Patient was brought to propagator laborer in fasting semi-sedated state after receiving Fentanyl and Benadryl achieiving moderate conscious sedated state. Using Xylocaine Anesthesia and modified Seldinger technique, a 6-Greek sheath was introduced in the right radial artery . Subsequently, selective coronary angiography was performed using a 5-Greek 3.5 bend Estephanie catheter. Multiple views of the coronary artery including hemiaxial views were obtained. The 5 Greek pigtail catheter was used to cross the aortic valve and LVEDP was calculated. An SAAVEDRA view of the left ventricle was obtained. Following that, catheter and sheath were removed. Hemostasis was obtained with deployment of vascular band . There was no immediate complication. Patient was returned to room in stable condition. Of note, the patient received a total of 4000 units of intravenous heparin as well as intra-arterial verapamil. Findings: Left main: This is a short size vessel, trifurcating into LAD, left circumflex and ramus intermedius. Left main has no obstructive disease. LAD: This is a large size vessel, reaching to the apex with a wraparound apex segment giving rise to a diagonal branch of moderate caliber the tapers down in the midsegment. The LAD has no obstructive disease the diagonal branch appears to be occluded in the distal segment. Left circumflex: This is a nondominant vessel, large in caliber giving rise to a large obtuse marginal branch, the left circumflex has no obstructive disease. RCA: This is a dominant vessel, tortuous, bifurcating distally to PDA and PLV. The right coronary artery and its branches have no obstructive disease Ramus intermedius: This is a large size vessel that has no obstructive disease Left Ventriculogram: Performed in the SAAVEDRA view and revealed a small area of mid LAD hypokinesis. The ejection fraction is 50 to 55%. Hemodynamics: There was no gradient across aortic valve, LVEDP was 14-16 mmHg Conclusion: 1. Appearance of occlusion of the distal segment of a small diagonal branch distally, could be spontaneous dissection 2. No obstructive disease in the left circumflex and RCA 3. Right dominance Recommendations: It is possible that the patient had spontaneous dissection of the distal segment of the diagonal branch, I would recommend to continue medical therapy with the aggressive coronary risks modifications and maintaining LDL below 70 mg/dL. The findings and the recommendations were discussed with the patient and the family and they were in full understanding and agreement. Duration of sedation is 20 minutes.
[2025-04-18] MEDS: CLOPIDOGREL 75 MG TAB PO SCH (13:35)
--- NOTE | 2025-04-18 15:11 | P.HPIM ---
History of Present Illness -year-old female came in with complaints of chest discomfort on the left side of the chest radiating to the left arm feeling dizzy and diaphoretic. EKG did not show any acute ST-T wave changes but patient has troponin that is elevated to 4.4 the first set of troponin is 0.163 followed by 2.6 followed by 4.04. Patient went to Video Production Intern did not show any significant atherosclerotic occlusive disease but there is a small diagonal branch that was spontaneously dissected. No intervention was done. Patient is being medically managed at this time patient is on aspirin Plavix heparin statin. REVIEW OF SYSTEMS: All other systems are negative except those mentioned in the HPI PHYSICAL EXAMINATION: GENERAL: The patient is alert and oriented x3, not in any acute distress. Well developed, well nourished. HEENT: Pupils are round and equally reacting to light. EOMI. No scleral icterus. No conjunctival pallor. Normocephalic, atraumatic. No pharyngeal erythema. No thyromegaly. CARDIOVASCULAR: S1 and S2 present. No murmurs, rubs, or gallops. PULMONARY: Chest is clear to auscultation, no wheezing or crackles. ABDOMEN: Soft, nontender, nondistended, normoactive bowel sounds. No palpable organomegaly. MUSCULOSKELETAL: No joint swelling or deformity. EXTREMITIES: No cyanosis, clubbing, or pedal edema. NEUROLOGICAL: Gross neurological examination did not reveal any focal deficits. SKIN: No rashes. Assessment and plan -Acute non-ST elevation [place] secondary to myocardial injury from dissection of the distal diagonal branch. As mentioned above patient will be on dual antiplatelet therapy, statin, beta-jagdeep - Hyperlipidemia - Depression - Factor V Leyden deficiency, history of methylene tetrahydrofolate reductase inhibitor. DVT prophylaxis: Patient on IV heparin at this time Past Medical History Past Medical History: Hyperlipidemia Additional Past Medical History / Comment(s): Factor 5, MTFHR, History of Any Multi-Drug Resistant Organisms: None Reported Past Surgical History: Adenoidectomy, Heart Catheterization, Tonsillectomy Additional Past Surgical History / Comment(s): D/C Past Psychological History: Depression Smoking Status: Never smoker Past Alcohol Use History: Occasional Past Drug Use History: None Reported Medications and Allergies Home Medications Medication Instructions Recorded Confirmed Type Dextroamphetamine/Amphetamine 15 mg PO DAILY 04/18/25 04/18/25 History [Adderall Xr 15 mg Capsule] Rosuvastatin [Crestor] 10 mg PO HS 04/18/25 04/18/25 History Terbinafine [LamISIL] 250 mg PO HS 04/18/25 04/18/25 History buPROPion XL [Wellbutrin XL] 300 mg PO DAILY 04/18/25 04/18/25 History Allergies Allergy/AdvReac Type Severity Reaction Status Date / Time amoxicillin Allergy Swelling/ra Verified 04/18/25 08:10 Physical Exam Vitals: Vital Signs Temp Pulse Pulse Resp BP BP Pulse Ox 04/18/25 13:39 58 L 113/74 97 04/18/25 13:08 97.9 F 61 18 105/71 95 04/18/25 12:45 53 L 16 110/77 97 04/18/25 12:30 60 16 112/77 96 04/18/25 12:15 67 16 110/76 97 04/18/25 12:00 66 16 102/72 97 04/18/25 10:41 62 17 97 04/18/25 08:41 65 17 04/18/25 07:36 71 17 124/83 97 04/18/25 06:28 98.2 F 80 18 129/89 99 04/18/25 05:00 64 121/85 97 04/18/25 04:00 62 17 124/89 98 04/18/25 03:10 98.1 F 73 18 122/90 99 04/18/25 01:00 73 126/89 04/18/25 00:00 74 16 125/82 04/17/25 22:54 69 18 128/87 98 04/17/25 22:30 68 118/73 04/17/25 21:08 74 16 121/68 98 04/17/25 20:48 98.1 F 82 17 138/91 100 04/17/25 20:18 98.0 F 142/99 04/17/25 20:02 98.2 F 106 H 17 160/111 100 Intake and Output 04/18/25 04/18/25 04/18/25 06:59 14:59 22:59 Intake Total 573.319 Balance 573.319 Intake: IV 510 Invasive Line 1 10 Intake, IV Titration 63.319 Amount Heparin Sod,Pork in 0.45% 63.319 NaCl 25,000 unit In 0.45 % NaCl 1 250ml.bag @ 12 UNITS/KG/HR 7.675 mls/hr IV .Q24H [facility] Rx#: [id number] Other: Voiding Method Toilet # Voids 1 Weight 63.957 kg Results CBC & Chem 7: 04/17/25 21:36 04/17/25 21:36 Labs: Abnormal Lab Results - Last 24 Hours (Table) 04/17/25 04/17/25 04/17/25 Range/Units 21:36 21:36 21:36 MCH 32.5 H (27.0-32.0) pg APTT (22.0-30.0) sec Carbon Dioxide 19 L (22-30) mmol/L Glucose 106 H (74-99) mg/dL Troponin I 0.163 H* (0.000-0.034) ng/mL 04/18/25 04/18/25 04/18/25 Range/Units 03:30 06:35 06:35 MCH (27.0-32.0) pg APTT 54.8 H (22.0-30.0) sec Carbon Dioxide (22-30) mmol/L Glucose (74-99) mg/dL Troponin I 2.670 H* 4.040 H* (0.000-0.034) ng/mL Thrombosis Risk Factor Assmnt - Choose All That Apply Each Factor Represents 1 point: Age 41-60 years Thrombosis Risk Factor Assessment Total Risk Factor Score: 1 Thrombosis Risk Factor Assessment Level: Low Risk
[2025-04-18 15:30] LABS: Chol/HDL Ratio 2.06 Ratio
[2025-04-18] MEDS: ATORVASTATIN 80 MG TAB PO SCH (20:59)
[2025-04-18] MEDS: ONDANSETRON 4 MG/2 ML VIAL IVP PRN (20:59)
[2025-04-19 09:23] LABS: Basophils # (A) 0.03 10*3/uL (0.00-0.10); Basophils % (A) 0.4 %; Eosinophils # (A) 0.16 10*3/uL (0.04-0.35); Eosinophils % (A) 2.3 %; HCT 43.4 % (37.2-46.3); HGB 14.2 g/dL (12.0-15.0); Lymphocytes # (A) 1.79 10*3/uL (0.90-5.00); Lymphocytes % (A) 25.4 %; MCH 32.7 pg (27.0-32.0); MCHC 32.7 g/dL (32.0-37.0); Mean Platelet Volume 11.6 fL (9.5-12.2); Monocytes # (A) 0.57 10*3/uL (0.20-1.00); Monocytes % (A) 8.1 %; Neutrophils # (A) 4.48 10*3/uL (1.80-7.70); Neutrophils % (A) 63.5 %; Platelet Count 244 10*3/uL (140-440); RBC 4.34 10*6/uL (4.10-5.20); WBC 7.05 10*3/uL (4.50-10.00)
[2025-04-19 09:36] LABS: INR 0.9 (<1.2); Prothrombin Time 10.3 sec (10.0-12.5)
[2025-04-19] MEDS: ASPIRIN 81 MG PO SCH (09:42)
[2025-04-19 09:51] LABS: African American GFR (CKD) >90 (>60 ml/min/1.73 sqM); Anion Gap 6 mmol/L; Blood Urea Nitrogen 9 mg/dL (7-17); Carbon Dioxide 28 mmol/L (22-30); Chloride 107 mmol/L (98-107); Glucose 77 mg/dL (74-99); Non-African American GFR(CKD) >90 (>60 ml/min/1.73 sqM); Potassium 3.8 mmol/L (3.5-5.1); Sodium 141 mmol/L (137-145)
[2025-04-19] MEDS: METOPROLOL TARTRATE 12.5 MG TAB PO SCH (10:04)
--- NOTE | 2025-04-19 11:04 | P.PN ---
Subjective HISTORY OF PRESENT ILLNESS: This is a 44-year-old female with a past medical history significant for depression, factor V, MTHFR. Patient does not follow with a director of industrial relations. We have been asked to see the patient in consultation for non-STEMI. Patient examined at the bedside in the ER. Patient states yesterday she woke up at 3:00 in the morning with chest discomfort. She ended up going to work and tried to push through. She states around 5:00 she had another episode of chest pain that radiated into her left arm. She reports feeling dizzy and diaphoretic. She presented to the ER for further evaluation. Patient was found to have elevated troponins and was started on IV heparin. She reports mild discomfort this morning and is rating it 1/10. DIAGNOSTICS: - EKG reveals sinus mechanism with no signs of acute ischemia. - Chest xray haziness over the right heart border possible airspace opacities versus rotation of exam. - Laboratory data: WBC 8.62. Hemoglobin 13.6. Platelet count 228. Sodium 137. Potassium 4.2. BUN 16. Creatinine 0.68. Troponin 0.162. 2.670. - Current home cardiac medications include none. - No previous echocardiogram, stress test, or cardiac catheterization available in EMR for review 04/19/2025 Patient is status post cardiac catheterization with Dr. Nielsen revealing appearance of occlusion of distal segment of small diagonal branch distally, could be spontaneous dissection, no obstructive disease in left circumflex or RCA. Medical management was recommended. Patient examined this morning the bedside. She currently denies chest pain or pressure. Denies shortness of breath. Vital signs are stable. Telemetry reveals sinus bradycardia with a heart rate in the 50s. PHYSICAL EXAM: VITAL SIGNS: Reviewed. GENERAL: Well-developed in no acute distress. HEENT: Head is normocephalic. Pupils are equal, round. Sclerae anicteric. Mucous membranes of the mouth are moist. Neck supple. No JVD or thyromegaly LUNGS: Respirations even and unlabored. Lungs essentially clear to auscultation bilaterally. HEART: Regular rate and rhythm. S1 and S2 heard. ABDOMEN: Soft. Nondistended. Nontender. EXTREMITIES: Normal range of motion. No clubbing or cyanosis. Peripheral pulses intact. No lower extremity edema NEUROLOGIC: Awake and alert. Oriented x 3. ASSESSMENT: Non-STEMI, status post cardiac catheterization revealing possible spontaneous dissection of small diagonal branch History of depression History of factor V Leyden History of MTHFR PLAN: 2D echo remains pending. Await results Continue aspirin, Lipitor, Plavix, and metoprolol Decrease metoprolol to 12.5 mg twice a day due to bradycardia Possible discharge home tomorrow if patient remains stable Further recommendations pending patient course Nurse practitioner note has been reviewed by physician. Signing provider agrees with the documented findings, assessment, and plan of care documented by [employer] as a scribe. Objective - Vital Signs Vital signs: Vital Signs Temp 98.5 F 04/19/25 09:10 Pulse 61 04/19/25 09:10 Resp 14 04/19/25 09:10 BP 122/78 04/19/25 09:10 Pulse Ox 99 04/19/25 09:10 FiO2 Intake & Output 04/18/25 04/19/25 04/19/25 18:59 06:59 18:59 Intake Total 813.319 20 10 Balance 813.319 20 10 Weight 63.957 kg 64.9 kg Intake: IV 510 20 10 Invasive Line 1 10 20 10 Intake, IV Titration 63.319 Amount Heparin Sod,Pork in 0.45% 63.319 NaCl 25,000 unit In 0.45 % NaCl 1 250ml.bag @ 12 UNITS/KG/HR 7.675 mls/hr IV .Q24H PETER Rx#: [id number] Oral 240 Other: Voiding Method Toilet Toilet Toilet # Voids 1 2 - Labs CBC & Chem 7: 04/19/25 07:57 04/19/25 07:57 Labs: Abnormal Lab Results - Last 24 Hours (Table) 04/18/25 04/19/25 Range/Units 06:35 07:57 MCV 100.0 H (80.0-97.0) fL MCH 32.7 H (27.0-32.0) pg HDL Cholesterol 82.90 H (40.00-60.00) mg/dL
--- NOTE | 2025-04-19 14:15 | P.PN ---
Subjective Progress Note Date: 04/19/25 44 year-old female came in with complaints of chest discomfort on the left side of the chest radiating to the left arm feeling dizzy and diaphoretic. EKG did not show any acute ST-T wave changes but patient has troponin that is elevated to 4.4 the first set of troponin is 0.163 followed by 2.6 followed by 4.04. [facility] did not show any significant atherosclerotic occlusive disease but there is a small diagonal branch that was spontaneously dissected. No intervention was done. Patient is being medically managed at this time patient is on aspirin Plavix heparin statin. 04/19/2025 patient seen and examined at bedside. Had an episode of bradycardia today after giving metoprolol. Labs today: WBC 7.05, hemoglobin 14.2, MCV 100, platelet count 244,000, sodium 141, potassium 3.8, bicarb 28, BUN 9, creatinine 0.76, glucose 77, calcium 9. Coagulation panel within normal limits. Imaging: EKG done today independently interpreted showed sinus bradycardia with a rate of 55, no ST-T changes and normal QTc at 403 MS. Review of systems: Pertinent positives and negatives as discussed in HPI, a complete review of systems was performed and all other systems are negative. Physical examination: Vital signs reviewed General: non toxic, no distress, appears at stated age Derm: no unusual rashes/lesions, warm Head: atraumatic, normocephalic, symmetric Eyes: EOMI, anicteric sclera, pupils equal round reactive to light ENT: Nose and ears atraumatic Neck: No cervical lymphadenopathy, trachea midline, supple Mouth: no lip lesion, mucus membranes moist Cardiovascular: S1S2 bradycardic, no murmur Lungs: CTA bilateral, no rhonchi, no rales, no accessory muscle use Abdominal: soft, nontender to palpation, no guarding Ext: muscle strength 5 out of 5 in all 4 extremities grossly, no gross muscle atrophy, no contractures, positive dorsalis pedis pulse bilateral, no edema Neuro: CN II-XI grossly intact, no gross focal neuro deficits Psych: Alert and oriented x3, appropriate affect and mood Assessment/Plan: #. Acute non-ST elevation CO secondary to myocardial injury from dissection of the distal diagonal branch. Cardiac monitoring Supplemental oxygen as needed EKG as needed Currently on dual antiplatelet therapy, atorvastatin 80 mg and metoprolol 12.5 mg p.o. twice daily. Hold metoprolol for today due to bradycardia Continue with 0.9 normal saline 75 cc/h Echocardiogram ordered Consult cardiology. Possible discharge tomorrow if remains stable Chronic conditions: #. Hyperlipidemia #. Depression #. Factor V Leyden deficiency #. History of methylene tetrahydrofolate reductase inhibitor. Continue home Wellbutrin 300 mg p.o. and Adderall 50 mg p.o. DVT prophylaxis: Lovenox 40mg Sq daily Patricia Martinez MD PGY-1/Contact [employer] Dictation was produced using [employer] dictation software. please excuse any grammatical, word or spelling errors. Attestation: I have seen and examined this patient with my resident, assessment and plan discussed with the resident, agree with assessment and plan as written above. Dr. Mayberry Objective - Vital Signs Vital signs: Vital Signs Temp 98.3 F 04/19/25 11:25 Pulse 45 L 04/19/25 11:25 Resp 16 04/19/25 11:25 BP 114/75 04/19/25 11:25 Pulse Ox 97 04/19/25 11:25 FiO2 Intake & Output 04/18/25 04/19/25 04/19/25 18:59 06:59 18:59 Intake Total 813.319 20 250 Balance 813.319 20 250 Weight 63.957 kg 64.9 kg Intake: IV 510 20 10 Invasive Line 1 10 20 10 Intake, IV Titration 63.319 Amount Heparin Sod,Pork in 0.45% 63.319 NaCl 25,000 unit In 0.45 % NaCl 1 250ml.bag @ 12 UNITS/KG/HR 7.675 mls/hr IV .Q24H PETER Rx#: [id number] Oral 240 240 Other: Voiding Method Toilet Toilet Toilet # Voids 1 2 - Labs CBC & Chem 7: 04/19/25 07:57 04/19/25 07:57 Labs: Abnormal Lab Results - Last 24 Hours (Table) 04/18/25 04/19/25 Range/Units 06:35 07:57 MCV 100.0 H (80.0-97.0) fL MCH 32.7 H (27.0-32.0) pg HDL Cholesterol 82.90 H (40.00-60.00) mg/dL
[2025-04-19] MEDS: ENOXAPARIN 40 MG/0.4 ML SYRINGE SQ SCH (15:45)
[2025-04-20 08:34] VITALS: TEMP 98.3
[2025-04-20] MEDS: buPROPion XL 300 MG TAB.ER.24H PO SCH (08:38)
[2025-04-20] MEDS: PATIENT'S OWN (Dextroamphetamine/Amphetamine [Adderall Xr 15 Mg Capsule] 15 MG Cap.Er PO SCH (08:39)
--- NOTE | 2025-04-20 08:59 | CA ---
Transthoracic Echo Report Name: Keshia Florence Age: 44 Gender: F : 1980 Exam Date: 04/19/2025 14:22 Exam Location: [facility] Ht (in): 64 Wt (lb): 141 Ordering Physician: Kenan Nielsen MD ([id number]) Attending/Referring Phys: Electrical Contacts Adjuster Yuliana Francis RDCS Procedure CPT: Indications: ID Cardiac Hx: Technical Quality: Good Contrast 1: Total Dose (mL): Contrast 2: Total Dose (mL): MEASUREMENTS (Male / Female) Normal Values 2D ECHO LV Diastolic Diameter PLAX 4.3 cm 4.2 - 5.9 / 3.9 - 5.3 cm LV Systolic Diameter PLAX 3.0 cm IVS Diastolic Thickness 0.8 cm 0.6 - 1.0 / 0.6 - 0.9 cm LVPW Diastolic Thickness 0.8 cm 0.6 - 1.0 / 0.6 - 0.9 cm LV Relative Wall Thickness 0.4 RV Internal Dim ED PLAX 2.3 cm LVOT Diameter 2.0 cm LA Systolic Diameter LX 3.1 cm 3.0 - 4.0 / 2.7 - 3.8 cm LV Diastolic Volume MOD BP 75.1 cm??? 67 - 155 / 56 - 104 cm??? LV Systolic Volume MOD BP 33.1 cm??? 22 - 58 / 19 - 49 cm??? LV Ejection Fraction MOD BP 55.9 % >= 55 % LV Cardiac Index MOD BP 1277.6 cm???/min???m??? LV Diastolic Volume MOD 4C 79.1 cm??? LV Systolic Volume MOD 4C 34.9 cm??? LV Ejection Fraction MOD 4C 55.9 % LV Cardiac Index MOD 4C 1345.2 cm???/min???m??? LV Diastolic Length 4C 8.2 cm LV Systolic Length 4C 6.8 cm LV Diastolic Volume MOD 2C 64.0 cm??? LV Systolic Volume MOD 2C 26.1 cm??? LV Ejection Fraction MOD 2C 59.2 % LV Cardiac Index MOD 2C 1153.4 cm???/min???m??? LV Diastolic Length 2C 7.3 cm LV Systolic Length 2C 5.6 cm DOPPLER MV Area PHT 2.3 cm??? MR Peak Velocity 486.1 cm/s MR Peak Gradient 94.5 mmHg Mitral E Point Velocity 71.6 cm/s Mitral A Point Velocity 31.7 cm/s Mitral E to A Ratio 2.3 MV Deceleration Time 330.7 ms TR Peak Velocity 244.5 cm/s TR Peak Gradient 23.9 mmHg Right Atrial Pressure 20.0 mmHg Pulmonary Artery Systolic Pressu 43.9 mmHg Right Ventricular Systolic Press 43.9 mmHg FINDINGS Left Ventricle Left ventricular ejection fraction is estimated at 55-60%. Normal Left ventricular size, wall thickness, systolic function with no obvious regional wall motion abnormalities. Right Ventricle Increased right ventricular wall thickness. Reduced right ventricular global systolic function. Right Atrium Normal right atrial size. Left Atrium Normal left atrial size. Mitral Valve Mitral valve thickened. No mitral stenosis. Mild mitral regurgitation. Aortic Valve Trileaflet aortic valve. No aortic stenosis. No aortic regurgitation. Tricuspid Valve Structurally normal tricuspid valve. No tricuspid stenosis. Mild tricuspid regurgitation. Pulmonic Valve Structurally normal pulmonic valve. No pulmonic stenosis. Trace pulmonic regurgitation. Pericardium No pericardial effusion. Aorta Normal size aortic root and proximal ascending aorta. CONCLUSIONS Normal left ventricular size wall motion and systolic function Mild mitral and tricuspid regurgitation RV systolic pressure is around 30 mm Previewed by: Dr. Feliberto Allen MD (Electronically Signed) Final Date: 20 April 2025 08:59
--- NOTE | 2025-04-20 09:42 | P.PN ---
Subjective HISTORY OF PRESENT ILLNESS: This is a 44-year-old female with a past medical history significant for depression, factor V, MTHFR. Patient does not follow with a paid search marketing analyst. We have been asked to see the patient in consultation for non-STEMI. Patient examined at the bedside in the ER. Patient states yesterday she woke up at 3:00 in the morning with chest discomfort. She ended up going to work and tried to push through. She states around 5:00 she had another episode of chest pain that radiated into her left arm. She reports feeling dizzy and diaphoretic. She presented to the ER for further evaluation. Patient was found to have elevated troponins and was started on IV heparin. She reports mild discomfort this morning and is rating it 1/10. DIAGNOSTICS: - EKG reveals sinus mechanism with no signs of acute ischemia. - Chest xray haziness over the right heart border possible airspace opacities versus rotation of exam. - Laboratory data: WBC 8.62. Hemoglobin 13.6. Platelet count 228. Sodium 137. Potassium 4.2. BUN 16. Creatinine 0.68. Troponin 0.162. 2.670. - Current home cardiac medications include none. - No previous echocardiogram, stress test, or cardiac catheterization available in EMR for review 04/19/2025 Patient is status post cardiac catheterization with Dr. Nielsen revealing appearance of occlusion of distal segment of small diagonal branch distally, could be spontaneous dissection, no obstructive disease in left circumflex or RCA. Medical management was recommended. Patient examined this morning the bedside. She currently denies chest pain or pressure. Denies shortness of breath. Vital signs are stable. Telemetry reveals sinus bradycardia with a heart rate in the 50s. 04/20/2025 Patient examined this morning the bedside. Patient currently denies chest pain or pressure. She denies shortness of breath. Echocardiogram performed reveals ejection fraction 55 to 60% with mild mitral and tricuspid regurgitation PHYSICAL EXAM: VITAL SIGNS: Reviewed. GENERAL: Well-developed in no acute distress. HEENT: Head is normocephalic. Pupils are equal, round. Sclerae anicteric. Mucous membranes of the mouth are moist. Neck supple. No JVD or thyromegaly LUNGS: Respirations even and unlabored. Lungs essentially clear to auscultation bilaterally. HEART: Regular rate and rhythm. S1 and S2 heard. ABDOMEN: Soft. Nondistended. Nontender. EXTREMITIES: Normal range of motion. No clubbing or cyanosis. Peripheral pulses intact. No lower extremity edema NEUROLOGIC: Awake and alert. Oriented x 3. ASSESSMENT: Non-STEMI, status post cardiac catheterization revealing possible spontaneous dissection of small diagonal branch History of depression History of factor V Leyden History of MTHFR PLAN: Continue aspirin Lipitor, Plavix, and metoprolol. Patient may resume her Crestor upon discharge. Recommend increasing dosage to 20 mg. Patient is stable for discharge home today cardiac standpoint Patient to follow-up postdischarge in the office in 1 week Nurse practitioner note has been reviewed by physician. Signing provider agrees with the documented findings, assessment, and plan of care documented by AUTO TRANSMISSION MECH[employer]IC as a scribe. Objective - Vital Signs Vital signs: Vital Signs Temp 98.3 F 04/20/25 08:30 Pulse 62 04/20/25 08:30 Resp 14 04/20/25 08:30 BP 111/73 04/20/25 08:30 Pulse Ox 96 04/20/25 08:30 FiO2 Intake & Output 04/19/25 04/20/25 04/20/25 18:59 06:59 18:59 Intake Total 730 20 250 Balance 730 20 250 Intake: IV 10 20 10 Invasive Line 1 10 20 10 Oral 720 240 Other: Voiding Method Toilet Toilet Toilet # Voids 3 - Labs CBC & Chem 7: 04/19/25 07:57 04/19/25 07:57
[2025-04-20 13:20] VITALS: BP 118/71; PULSE 54; RESP 18
--- NOTE | 2025-04-21 22:50 | P.DS ---
Providers Date of admission: 04/18/25 00:05 Attending physician: Jim Rossi Consults: 04/18/25 00:03 Consult Physician Urgent Consulting Provider: [facility] Consult Reason/Comments: acute chest pain, nstemi Do you want consulting provider notified?: Yes Primary care physician: Dewey Miller Hospital Course: Final Diagnosis #. Acute non-ST elevation CT secondary to myocardial injury from dissection of the distal diagonal branch. #. Hyperlipidemia #. Depression #. Factor V Leyden deficiency #. History of methylene tetrahydrofolate reductase inhibitor. Discharge Disposition Patient is stable for discharge home. Patient to continue crestor on discharge. Unable to tolerate atorvastatin due to muscle weakness. Discharged on aspirin and plavix dual antiplatelet therapy. Started on metoprolol 12.5 mg twice daily. Recommend close follow up with Dr Diamond on discharge. Follow up with Dr Miller in 2 to 3 days. Hospital Course 44 year-old female came in with complaints of chest discomfort on the left side of the chest radiating to the left arm feeling dizzy and diaphoretic. EKG did not show any acute ST-T wave changes but patient has troponin that is elevated to 4.4 the first set of troponin is 0.163 followed by 2.6 followed by 4.04. Patient went to Bulldozer Mechanic did not show any significant atherosclerotic occlusive disease but there is a small diagonal branch that was spontaneously dissected. No intervention was done. Patient is being medically managed at this time patient is on aspirin Plavix, statin. Had an episode of bradycardia today after giving metoprolol. Echocardiogram comes back revealing an EF of 55 to 60% with mild MR and TR, RV systolic pressure is around 30 mm. Patient is currently not having any chest pain or shortness of breath. She has been up ambulating around the room. Patient will be discharged home. Review of Systems Constitutional: Denied any fatigue denied any fever. Cardio vascular: denied any chest pain, palpitations Gastrointestinal: denied any nausea, vomiting, diarrhea Pulmonary: Denied any shortness of breath cough Neurologic denied any new focal deficits All inpatient medications were reviewed and appropriate changes in these medications as dictated in the interval history and assessment and plan. PHYSICAL EXAMINATION: GENERAL: The patient is alert and oriented x3, not in any acute distress. Well developed, well nourished. HEENT: Pupils are round and equally reacting to light. EOMI. No scleral icterus. No conjunctival pallor. Normocephalic, atraumatic. No pharyngeal erythema. No thyromegaly. CARDIOVASCULAR: S1 and S2 present. No murmurs, rubs, or gallops. PULMONARY: Chest is clear to auscultation, no wheezing or crackles. ABDOMEN: Soft, nontender, nondistended, normoactive bowel sounds. No palpable organomegaly. MUSCULOSKELETAL: No joint swelling or deformity. EXTREMITIES: No cyanosis, clubbing, or pedal edema. NEUROLOGICAL: Gross neurological examination did not reveal any focal deficits. SKIN: No rashes. Please see medication reconciliation for a list of current medications. Thank you for allowing us to participate in the care of this patient. The impression and plan of care has been dictated by Yanira Real, Nurse Practitioner as directed. Dr. Shawanda MD I have performed a history and physical examination and medical decision making of this patient, discussed the same with the dictator, and agree with the dictators assessment and plan as written, documented as a scribe. Based on total visit time, I have performed more than 50% of this visit. Patient Condition at Discharge: Stable Plan - Discharge Summary Discharge Rx Participant: No New Discharge Prescriptions: New Aspirin 81 mg PO DAILY #30 tab Metoprolol Tartrate [Lopressor] 12.5 mg PO BID #60 tab Clopidogrel [Plavix] 75 mg PO DAILY #30 tab Rosuvastatin [Crestor] 20 mg PO DAILY #30 tablet Continue buPROPion XL [Wellbutrin XL] 300 mg PO DAILY Dextroamphetamine/Amphetamine [Adderall Xr 15 mg Capsule] 15 mg PO DAILY Terbinafine [LamISIL] 250 mg PO HS Discontinued Rosuvastatin [Crestor] 10 mg PO HS Discharge Medication List Dextroamphetamine/Amphetamine [Adderall Xr 15 mg Capsule] 15 mg PO DAILY 04/18/25 [History] Terbinafine [LamISIL] 250 mg PO HS 04/18/25 [History] buPROPion XL [Wellbutrin XL] 300 mg PO DAILY 04/18/25 [History] Aspirin 81 mg PO DAILY #30 tab 04/20/25 [Rx] Clopidogrel [Plavix] 75 mg PO DAILY #30 tab 04/20/25 [Rx] Metoprolol Tartrate [Lopressor] 12.5 mg PO BID #60 tab 04/20/25 [Rx] Rosuvastatin [Crestor] 20 mg PO DAILY #30 tablet 04/20/25 [Rx] Follow up Appointment(s)/Referral(s): Luiz Diamond MD [STAFF PHYSICIAN] - 1 Week (please call and make follow-up) Dewey Miller MD [Primary Care Provider] - 1-2 days (please call and make follow-up) Patient Instructions/Handouts: *Surgery [facility] - After Heart Catheterization - Occupational Medicine Officer Instructions, Heart Attack (DC) Activity/Diet/Wound Care/Special Instructions: Continue aspirin and plavix Continue atorvastatin Continue metoprolol Follow up with cardiology in 1 to 2 weeks Follow up with Dr Miller in 1 to 2 days Discharge/Stand Alone Forms: Work/School Release / Restrict Discharge Disposition: HOME SELF-CARE
== END 2025-04-20 12:02 | disposition home or self-care (01) | DRG 280 ==
LOC: EC 20:00 → 3SCARD 04-18 00:05
PROVIDERS: ADMIT Hospitalist; ATTEND Hospitalist
PROC: B2111ZZ Fluoroscopy of Multiple Coronary Arteries using Low Osmolar Contrast (ICD-10-PCS; 2025-04-18)
PROC: 4A023N7 Measurement of Cardiac Sampling and Pressure, Left Heart, Percutaneous Approach (ICD-10-PCS; principal; 2025-04-18 11:00)
DX: I21.4 Non-ST elevation (NSTEMI) myocardial infarction (principal); I25.42 Coronary artery dissection; F32.A Depression, unspecified; I08.1 Rheumatic disorders of both mitral and tricuspid valves; D68.51 Activated protein C resistance; E72.12 Methylenetetrahydrofolate reductase deficiency; R00.1 Bradycardia, unspecified; E78.5 Hyperlipidemia, unspecified; Z79.899 Other long term (current) drug therapy
CPT/HCPCS: 36415; 71046; 71275; 80048; 80053; 80061; 83036; 83690; 83735; 84484; 85025; 85610; 85730; 93005; 93306; 96361; 96365; 96366; 96375; 99285